=== PATIENT | female | born 1965 | race Caucasian/White ===

== ENCOUNTER 2017-10-11 10:38 | Emergency (ER) | payer MEDICAID, SELFPAY ==
[2017-10-11 10:19] VITALS: BP 126/79; PULSE 87; RESP 20; TEMP 36.7; O2SAT 99; BMI 73.1
--- NOTE | 2017-10-11 10:30 | XR_ITS ---
XR humerus RT CLINICAL INDICATION: ITS.REASON: Fall, right arm pain ORDERING PHYSICIAN: Shay Aden MD PATIENT AGE: 52 years COMPARISON: None FINDINGS: Study is somewhat limited technically due to patient's positioning. There is some deformity of the humeral head probably chronic. Please correlate as to patient's area of pain and tenderness. There is a subtle lucency involving the distal humerus laterally at the metaphyseal diaphyseal junction. This is of questionable clinical significance. Elbow films which are better centered over this area show no obvious fracture. IMPRESSION: No definite acute fracture. Deformity of the humeral head probably chronic.
--- NOTE | 2017-10-11 10:31 | XR_ITS ---
XR elbow RT 2V HISTORY: Pain following injury ITS.REASON: post fall ORDERING PHYSICIAN: Shay Aden MD PATIENT AGE: 52 years COMPARISON: None FINDINGS: No obvious fracture or dislocation. There are mild hypertrophic changes along the radial neck. IMPRESSION: Mild degenerative change, no obvious acute fracture
--- NOTE | 2017-10-11 11:33 | HMH.EDFALL ---
ED Disposition Clinical Impression: Multiple falls Disposition: Admitted As Inpatient Condition on Discharge: Good Instructions: How to Prevent Falls Time of Disposition: 14:14 - Critical Care Critical Care Time: No Attestation: On 10/11/17, the high probability of a clinically significant, sudden or life threatening deterioration of the following system(s) required my full and direct attention, intervention and personal management. The time I documented below is in addition to time spent performing reported procedures but includes the following listed in this critical care notation. Medical Decision Making - Medical Records Medical records reviewed: Yes: I reviewed the patient's medical records. Vital Signs: 10/11/17 10:19 10/11/17 16:25 Temperature 98.0 F 98.5 F Temperature Source Oral Oral Pulse Rate 87 Pulse Rate [Right Radial] 87 Respiratory Rate 20 14 Blood Pressure 130/75 Blood Pressure [Left Arm] 126/79 Blood Pressure Mean [Left Arm] 94 Blood Pressure Source Automatic Cuff Blood Pressure Source [Left Arm] Automatic Cuff Blood Pressure Position Sitting Blood Pressure Position [Left Arm] Sitting 02 Sat by Pulse Oximetry 99 Oxygen Delivery Method Room Air Room Air - Lab Data Lab Results 10/11/17 11:28: Urine Color Yellow, Urine Appearance Clear, Urine pH 6.0, Ur Specific [place] 1.015, Urine Protein Negative, Urine Glucose (UA) Negative, Urine Ketones Negative, Urine Blood Negative, Urine Nitrate Negative, Urine Bilirubin Negative, Urine Urobilinogen 0.2, Ur Leukocyte Esterase Negative, Urine RBC None, Urine WBC Occasional, Ur Squamous Epith Cells None, Urine Bacteria 3+ 10/11/17 12:07: WBC 10.4, RBC 3.91 L, Hgb 10.6 L, Hct 33.0 L, MCV 84.5, MCH 27.0, MCHC 32.0, RDW 14.1, Plt Count 178, MPV 7.5, Neut % (Auto) 71.9, Lymph % (Auto) 17.6, [place] % (Auto) 9.5 H, Eos % (Auto) 0.8, Baso % (Auto) 0.2, Neut # (Auto) 7.5, Lymph # (Auto) 1.8, [place] # (Auto) 1.0, Eos # (Auto) 0.1, Baso # (Auto) 0.0 10/11/17 12:07: Sodium 132 L, Potassium 4.0, Chloride 100, Carbon Dioxide 25, Anion Gap 11.0, BUN 28 H, Creatinine 1.58 H, Estimated Creat Clear 34, Estimated GFR 35 L, Est GFR ( Amer) 42 L, Glucose 100, Calcium 8.9, Total Bilirubin 0.9, AST 22, ALT 23, Alkaline Phosphatase 111, Total Protein 7.4, Albumin 3.0 L, Globulin 4.4 H, Albumin/Globulin Ratio 0.7 L 10/11/17 12:07: Total Creatine Kinase 320 H, CK-MB (CK-2) 0.7, CK-MB (CK-2) Rel Index 0.2, Troponin I < 0.02 Result diagrams: 10/11/17 12:07 10/11/17 12:07 - Radiology Data #1 Image(s): Elbow (right) Image Reviewed: Yes I reviewed the patient's radiology results Preliminary Findings: Normal/NAD #2 Image(s): Humerus (right) Image Reviewed: Yes I reviewed the patient's radiology results Preliminary Findings: Normal/NAD - ECG Data Tracing #1 I reviewed this ECG and interpreted as documented below: No acute disease, no ectopies, normal HI interval ECG normal with no acute: arrhythmias, ischemia, conduction abnormalities, chamber hypertrophy - Cain Inquiry Pt receiving controlled substance: No - Reevaluation(s) Time: 14:10 Reevaluation #1: Case discussed with Dr. Rod, covering for Dr. Pabon, advice of patient presentation findings, agreeable with admission. Medical care transferred Dr. Quinn at this time. I will write temporary admission orders per hospital protocol. Upon patient's presentation to the floor the nurse will contact PCP in order to obtain full inpatient admission orders. Fall HPI - General Chief Complaint: Fall Stated Complaint: frequent falls Time Seen by Provider: 10/11/17 10:50 Mode of Arrival: EMS Source of Information: Patient Limitations: Physical Limitations Description of Symptoms (Recalled from ER Triage Doc. by RN): [facility] [place], frequent falls for a few weeks. Fell this AM by her bed, C/O right arm pain post fall. Also states her feet are numb since she fell. - History of P
[2017-10-11 11:39] LABS: Microscopic, Urine URINE MICROSCOPIC (MICROSCOPIC)
[2017-10-11 11:42] LABS: Appearance,Urine CLEAR (Clear); Bilirubin,Urine Negative (Negative); Blood, Urine Negative (Negative); Color,Urine YELLOW (Yellow); Glucose,Urine (UA) Negative (Negative); Ketones,Urine Negative (Negative); Leukocyte Esterase,Urine Negative (Negative); Nitrate,Urine Negative (Negative); Protein,Urine Negative (Negative); Specific Gravity, Urine 1.015 (1.005-1.030); Urobilinogen,Urine 0.2 EU/dl (0.2)
[2017-10-11 11:58] LABS: WBC,Urine Occasional #/hpf (0-3)
[2017-10-11 11:59] LABS: Bacteria,Urine 3+ /lpf
[2017-10-11 12:31] LABS: Alanine Aminotransferase 23 U/L (12-78); Albumin/Globulin Ratio 0.7 (1.1-1.8); Alkaline Phosphatase 111 U/L (46-116); Aspartate Amino Transferase 22 U/L (15-37); Bilirubin,Total 0.9 mg/dL (0.2-1.0); Blood Urea Nitrogen 28 mg/dL (7-18); Calcium 8.9 mg/dL (8.5-10.1); Carbon Dioxide 25 mmol/L (21.0-32.0); Chloride 100 mmol/L (98-107); Creatinine Clearance Estimated 34 mL/min (0-300); Creatinine,Serum 1.58 mg/dL (0.55-1.02); Estimated Glomerular Filt Rate 35 ml/min (>60); GFR (African American) 42 ML/MIN (>60); Globulin 4.4 gm/dl (1.3-3.2); Glucose 100 mg/dL (74-106); Sodium 132 mmol/L (136-145); Total Protein,Serum 7.4 gm/dL (6.4-8.2)
[2017-10-11 12:36] LABS: Basophils % 0.2 % (0.1-2.0); Eosinophils # 0.1 K/mm3 (0.0-0.4); Eosinophils % 0.8 % (0.1-12.0); Hemoglobin 10.6 g/dL (12.2-16.2); Lymphocytes # 1.8 K/mm3 (0.7-4.5); Lymphocytes % 17.6 K/mm3 (10-50); Mean Corpuscular Volume 84.5 fl (81-99); Mean Platelet Volume 7.5 fl (7.4-10.4); Monocytes % 9.5 % (1.7-9.3); Neutrophils # 7.5 K/mm3 (1.8-7.8); Neutrophils % 71.9 % (37.0-80.0); Platelet Count 178 K/mm3 (142-424); Red Blood Count 3.91 M/mm3 (4.20-5.40); Red Cell Distribution Width 14.1 % (11.5-17.5); White Blood Count 10.4 K/mm3 (4.8-10.8)
[2017-10-11 12:52] LABS: CKMB Relative Index 0.2 U/L (0-4.0); Creatine Kinase 320 U/L (26-192); Creatine Kinase MB 0.7 mg/ml (0.0-3.6); Troponin I < 0.02 ng/ml (0.00-0.06)
--- NOTE | 2017-10-11 15:48 | PC.NURSE ---
Cardiac Enzymes cancelled per Dr. Aden's verbal order.
[2017-10-11 16:25] VITALS: BP 130/75; PULSE 87; RESP 14; TEMP 36.9; O2SAT 98
== END 2017-10-11 16:26 | disposition admitted as inpatient to this hospital (09) ==
PROVIDERS: Emergency Provider Emergency Medicine; Family Provider Emergency Medicine
DX: R29.6 Repeated falls (principal); M79.601 Pain in right arm; R20.2 Paresthesia of skin; Z79.82 Long term (current) use of aspirin; Z79.899 Other long term (current) drug therapy
CPT/HCPCS: 73060; 73070; 80053; 81001; 82550; 82553; 84484; 85025; 87086; 93005; 93041; 99284

== ENCOUNTER → 2017-11-02 10:02 | Outpatient (CLI) | payer MEDICAID, SELFPAY ==
--- NOTE | 2017-11-02 10:07 | US_ITS ---
US breast RT complete COMPARISON: None INDICATION: Painful right tender breast warmth to touch with edema ORDERING PHYSICIAN: Lico Pabon MD PATIENT AGE: 52 years TECHNIQUE: Complete ultrasound the right breast including axilla. Study is somewhat limited secondary to patient inability to be properly positioned FINDINGS: There is a 10 x 8 cm hypoechoic mass present in the upper outer aspect of the right breast towards the axilla. This is hypoechoic with some through transmission of sound. There are low level echoes within this region. The margins are somewhat irregular with some lobulation/spiculation of the margins. This may represent a breast abscess with internal debris. Cannot exclude the possibility of a soft tissue mass/neoplasm. This does not have a typical appearance for inflammatory breast carcinoma. No significant hypervascularity of the lesion. The patient could not tolerate vomiting the mammogram. IMPRESSION: 10 x 8 cm complex right breast mass which may represent an abscess. Neoplasm is also considered. BI-RADS Category: 4 Suspicious Abnormality-Biopsy Considered RECOMMENDED FOLLOW-UP: IMM - IMMEDIATE FOLLOW-UP RECOMMENDED Recommend surgical consult. Ultrasound-guided biopsy/drainage could be performed if clinically desired. (A letter has been sent to the patient regarding results of the study.)
== END ==
PROVIDERS: Family Provider Emergency Medicine; PCP Emergency Medicine; Visit Provider Emergency Medicine
DX: N64.4 Mastodynia (principal); R60.0 Localized edema
CPT/HCPCS: 76641

== ENCOUNTER 2017-11-02 18:23 | Inpatient (IN) | payer MEDICAID, SELFPAY ==
[2017-11-02 18:28] VITALS: BP 94/91; PULSE 87; RESP 16; TEMP 36.8; O2SAT 98; BMI 82.3
--- NOTE | 2017-11-02 18:48 | HMH.EDGENADL ---
ED Disposition Condition on Discharge: Serious - Critical Care Critical Care Time: Yes Total Critical Care Time: 40 Vital system(s) involved:: Metabolic Failure, Renal Failure My critical care processes included: Assessment & monitoring of V/S, Initial and Re-exams, Data Review/Interpretation, Coordinating Care, Medication Orders and management, Documentation <Julio Cesar Covarrubias - Last Filed: 11/02/17 20:13> <Lico Pabon - Last Filed: 11/02/17 20:46> Clinical Impression: Hyperkalemia, Abscess of right breast Acute renal failure Qualifiers: Acute renal failure type: unspecified Qualified Code(s): N17.9 - Acute kidney failure, unspecified Disposition: Still a Patient Referrals: Lico Pabon MD [Primary Care Provider] - Attestation: On 11/02/17, the high probability of a clinically significant, sudden or life threatening deterioration of the following system(s) required my full and direct attention, intervention and personal management. The time I documented below is in addition to time spent performing reported procedures but includes the following listed in this critical care notation. Medical Decision Making - Lab Data Result diagrams: 11/02/17 18:30 11/02/17 18:30 - Cain Inquiry Pt receiving controlled substance: No <Julio Cesar Covarrubias - Last Filed: 11/02/17 20:13> - Lab Data Result diagrams: 11/02/17 18:30 11/02/17 18:30 <Lico Pabon - Last Filed: 11/02/17 20:46> Vital Signs: 11/02/17 18:28 11/02/17 20:16 Temperature 98.2 F Temperature Source Oral Pulse Rate 88 Pulse Rate [Left Radial] 87 Respiratory Rate 16 Blood Pressure [Left Arm] 94/91 Blood Pressure Mean [Left Arm] 92 Blood Pressure Source [Left Arm] Automatic Cuff Blood Pressure Position [Left Arm] Supine 02 Sat by Pulse Oximetry 98 Oxygen Delivery Method Room Air - Lab Data Lab Results 11/02/17 18:30: WBC 16.1 H, RBC 3.68 L, Hgb 9.6 L, Hct 32.0 L, MCV 86.9, MCH 26.1 L, MCHC 30.1 L, RDW 14.7, Plt Count 563 H, MPV 7.2 L, Neut % (Auto) 85.2 H, Lymph % (Auto) 8.7 L, [place] % (Auto) 5.4, Eos % (Auto) 0.6, Baso % (Auto) 0.3, Neut # (Auto) 13.7 H, Lymph # (Auto) 1.4, [place] # (Auto) 0.9, Eos # (Auto) 0.1, Baso # (Auto) 0.0, Total Counted 100, Neutrophils % (Manual) 80 H, Band Neutrophils % 2.0, Lymphocytes % (Manual) 13, Monocytes % (Manual) 5, Hypersegmented Neuts 2+, Platelet Estimate Moderate increase, Macrocytosis 1+, Rouleaux 2+ 11/02/17 18:30: Sodium 134 L, Potassium 6.9 H*, Chloride 101, Carbon Dioxide 21, Anion Gap 18.9 H, BUN 65 H, Creatinine 3.28 H, Estimated Creat Clear 16, Estimated GFR 15 L*, Est GFR ( Amer) 18 L*, Glucose 79, Calcium 8.7, Total Bilirubin 0.4, AST 154 H, ALT 54, Alkaline Phosphatase 90, Total Protein 7.3, Albumin 1.8 L, Globulin 5.5 H, Albumin/Globulin Ratio 0.3 L Orders (Tests/Meds): ED MEDICATIONS Generic Name Dose Route Start Last Admin Trade Name Freq PRN Reason Stop Dose Admin Vancomycin HCl 3,000 mg 11/02/17 20:44 Vancomycin 1000mg Vial IV 11/02/17 20:45 [facility] Protocol Discontinued Medications Generic Name Dose Route Start Last Admin Trade Name Freq PRN Reason Stop Dose Admin Albuterol Sulfate 2.5 mg 11/02/17 19:37 11/02/17 20:11 Albuterol 0.083% 2.5mg/3ml Neb IH 11/02/17 19:38 2.5 mg ONCE ONE Administration Dextrose 50 ml 11/02/17 19:35 11/02/17 19:49 Dextrose 50% 50ml Syringe IVP 11/02/17 19:36 50 ml ONCE ONE Administration Insulin Human Regular 10 unit 11/02/17 19:35 11/02/17 19:49 Humulin R Insulin 100 Units/Ml 10ml Vial IVP 11/02/17 19:36 10 unit ONCE ONE Administration Sodium Bicarbonate 50 meq 11/02/17 19:33 11/02/17 19:49 Sodium Bicarbonate 8.4% 50ml Syringe IV 11/02/17 19:34 50 meq ONCE ONE Administration Sodium Polystyrene Sulfonate 15 gm 11/02/17 19:37 11/02/17 19:50 Kayexalate 15gm/60ml Bottle PO 11/02/17 19:38 15 gm ONCE ONE Administration ORD
[2017-11-02 19:13] LABS: Basophils % 0.3 % (0.1-2.0); Eosinophils # 0.1 K/mm3 (0.0-0.4); Eosinophils % 0.6 % (0.1-12.0); Hemoglobin 9.6 g/dL (12.2-16.2); Lymphocytes # 1.4 K/mm3 (0.7-4.5); Lymphocytes % 8.7 K/mm3 (10-50); Mean Corpuscular HGB Conc 30.1 g/dL (31.8-35.4); Mean Corpuscular Hemoglobin 26.1 pg (27.0-31.2); Mean Corpuscular Volume 86.9 fl (81-99); Mean Platelet Volume 7.2 fl (7.4-10.4); Monocytes # 0.9 K/mm3 (0.1-1.0); Monocytes % 5.4 % (1.7-9.3); Neutrophils # 13.7 K/mm3 (1.8-7.8); Neutrophils % 85.2 % (37.0-80.0); Platelet Count 563 K/mm3 (142-424); Red Blood Count 3.68 M/mm3 (4.20-5.40); Red Cell Distribution Width 14.7 % (11.5-17.5); White Blood Count 16.1 K/mm3 (4.8-10.8)
[2017-11-02 19:15] LABS: MANUAL DIFFERENTIAL MANUAL DIFFERENTIAL (MANUAL DIFF)
[2017-11-02 19:21] LABS: Alanine Aminotransferase 54 U/L (12-78); Albumin Level 1.8 gm/dL (3.4-5.0); Albumin/Globulin Ratio 0.3 (1.1-1.8); Alkaline Phosphatase 90 U/L (46-116); Aspartate Amino Transferase 154 U/L (15-37); Bilirubin,Total 0.4 mg/dL (0.2-1.0); Blood Urea Nitrogen 65 mg/dL (7-18); Calcium 8.7 mg/dL (8.5-10.1); Carbon Dioxide 21 mmol/L (21.0-32.0); Chloride 101 mmol/L (98-107); Creatinine Clearance Estimated 16 mL/min (0-300); Creatinine,Serum 3.28 mg/dL (0.55-1.02); Globulin 5.5 gm/dl (1.3-3.2); Glucose 79 mg/dL (74-106); Lymphocytes % 13 % (10-50); Monocytes % 5 % (2-9); Neutrophils % 80 % (42-76); Platelet Estimate Moderate Increase; Sodium 134 mmol/L (136-145); Total Cells Counted 100; Total Protein,Serum 7.3 gm/dL (6.4-8.2)
[2017-11-02 19:22] LABS: Hypersegmented Neutrophils 2+; Macrocytosis 1+; Rouleaux 2+
--- NOTE | 2017-11-02 19:22 | PC.NURSE ---
PT HAS 2-3 BREAKDOWN ON BOTH BUTTOCKS AND LOWER BACK ABOVE COCCYX. MD NOTIFIED AND STAFF NOTIFIED DURING HAND OFF REPORT.
--- NOTE | 2017-11-02 19:25 | PC.NURSE ---
PT ALSO HAS AN INFLAMED AREA ON THE RIGHT BREAST. MD AWARE AND STAFF AWARE
[2017-11-02 19:34] LABS: Estimated Glomerular Filt Rate 15 ml/min (>60); GFR (African American) 18 ML/MIN (>60)
[2017-11-02 19:35] LABS: Anion Gap 18.9 mEq/L (5-15); Potassium 6.9 mmoL/L (3.5-5.1)
[2017-11-02 20:16] VITALS: PULSE 88; PULSE 90
--- NOTE | 2017-11-02 20:37 | PC.NURSE ---
DR Pabon attempting to get acceptance at higher level of care, is on the line , also calliong pharmacy for vanco dose
[2017-11-02 21:08] VITALS: BMI 69.5
[2017-11-02 22:26] VITALS: BP 89/48; PULSE 83; RESP 25; TEMP 37.1; O2SAT 95
[2017-11-02 23:00] VITALS: O2SAT 97
[2017-11-02 23:22] VITALS: O2SAT 92
[2017-11-03] VITALS (10 sets, daily range): BP systolic 92–113; BP diastolic 45–58; PULSE 70–90; RESP 20–24; TEMP 36.4–37.8; O2SAT 93–98
[2017-11-03 01:52] LABS: Anion Gap 20.2 mEq/L (5-15); Blood Urea Nitrogen 65 mg/dL (7-18); Carbon Dioxide 18 mmol/L (21.0-32.0); Chloride 106 mmol/L (98-107); Creatinine Clearance Estimated 16 mL/min (0-300); Creatinine,Serum 3.11 mg/dL (0.55-1.02); Estimated Glomerular Filt Rate 16 ml/min (>60); Glucose 94 mg/dL (74-106); Sodium 138 mmol/L (136-145)
--- NOTE | 2017-11-03 01:53 | PC.NURSE ---
scattered bruises and scratches noted to all extremities, deep tissue area noted to bilateral buttocks, small open areas present, area was cleaned with betadine and covered with ABD pads, reddened swollen area noted to right breast.
[2017-11-03 01:55] LABS: Potassium 6.2 mmoL/L (3.5-5.1)
[2017-11-03 01:56] LABS: GFR (African American) 19 ML/MIN (>60)
--- NOTE | 2017-11-03 02:00 | PC.NURSE ---
lab notified RN of critical potassium result of 6.2, MD notified and kayexalate 15gm/60 ml ordered and given, pt has yet to have a bowel movement, while administering kayexalate pt became combative and agressive toward staff using foul language, pt deescalated, safety measures in place, will continue to monitor.
[2017-11-03 06:20] LABS: Basophils % 0.3 % (0.1-2.0); Eosinophils # 0.1 K/mm3 (0.0-0.4); Eosinophils % 0.4 % (0.1-12.0); Hematocrit 29.3 % (37.0-47.0); Hemoglobin 9.2 g/dL (12.2-16.2); Lymphocytes # 1.4 K/mm3 (0.7-4.5); Lymphocytes % 11.6 K/mm3 (10-50); Mean Corpuscular HGB Conc 31.4 g/dL (31.8-35.4); Monocytes # 0.8 K/mm3 (0.1-1.0); Monocytes % 6.3 % (1.7-9.3); Neutrophils % 81.4 % (37.0-80.0); Platelet Count 447 K/mm3 (142-424); Red Blood Count 3.41 M/mm3 (4.20-5.40); Red Cell Distribution Width 14.8 % (11.5-17.5); White Blood Count 12.3 K/mm3 (4.8-10.8)
[2017-11-03 06:29] LABS: Anion Gap 16.4 mEq/L (5-15); Blood Urea Nitrogen 63 mg/dL (7-18); Carbon Dioxide 21 mmol/L (21.0-32.0); Chloride 105 mmol/L (98-107); Creatinine Clearance Estimated 17 mL/min (0-300); Creatinine,Serum 2.92 mg/dL (0.55-1.02); Estimated Glomerular Filt Rate 17 ml/min (>60); GFR (African American) 21 ML/MIN (>60); Glucose 87 mg/dL (74-106); Potassium 5.4 mmoL/L (3.5-5.1); Sodium 137 mmol/L (136-145)
--- NOTE | 2017-11-03 08:09 | HMH.GSCON ---
*Admission Date: 11/02/17 *Chief complaint: abscess *History of present illness: This is a 52yo female seen in consultation from Dr. Pabon for evaluation of right chest abscess. She has a complex medical history including recent treatment for acute kidney injury. She is a poor historian, but has seemingly been developing a somewhat tender swelling of the right upper chest. US shows ~10cm likely abscess Review of Systems - Constitutional Denies anorexia - *Cardiovascular Denies chest pain - *Respiratory Denies cough - *Gastrointestinal Denies abdominal pain [facility] History Medical History: Reports:: Coronary Artery Disease, Hyperlipidemia Denies:: Internal Pacemaker Other Medical History: Reports: Anemia Other Surgeries: No: Pacemaker - *Social History Educational Level: Completed Grade School Smoking Status: Never smoker Alcohol Intake: never Occupational Status: disabled Housing: care home - Psychiatric History Expresses thoughts of harming self/others: None Suicide Plan Description: No Plan *Family Hx:: Unable to obtain Meds Home Medications Medication Instructions Recorded Confirmed Type Acetaminophen 650 mg PO Q4HP PRN 10/11/17 11/03/17 History Furosemide [Furosemide 40MG tAB] 40 mg PO BID 10/11/17 11/03/17 History Gabapentin [Gabapentin 800mg Tab] 800 mg PO TID 10/11/17 11/03/17 History Tramadol HCl [Ultram Take Home 50 mg PO BID 10/11/17 11/03/17 History Pack 50mg (10)] Trazodone HCl 150 mg PO HS 10/11/17 11/03/17 History LORazepam [Ativan] 0.5 mg PO BID 11/02/17 11/02/17 History Mag Hydrox/Aluminum Hyd/Simeth 30 ml PO Q2HP PRN 11/02/17 11/02/17 History [Gemma-Lanta Liquid] Melatonin/Pyridoxine HCl (B6) 1 each PO HS 11/02/17 11/02/17 History [Melatonin 5 mg Tablet] Ondansetron [Zofran 4mg ODT] 4 mg PO Q8HP PRN 11/02/17 11/02/17 History Sodium Polystyrene Sulfon/Sorb 60 ml PO DAILY 11/02/17 11/02/17 History [Kayexalate 15gm/60mL bottle] cephALEXin [Keflex 500mg Cap] 1,000 mg PO BID 11/02/17 11/02/17 History Pantoprazole Sodium [Protonix 40mg 40 mg PO DAILY 11/03/17 11/03/17 History tablet] buPROPion HCl [Wellbutrin Xl] 300 mg PO DAILY 11/03/17 11/03/17 History Allergies Allergy/AdvReac Type Severity Reaction Status Date / Time No Known Allergies Allergy Unverified 09/11/17 14:14 Exam Vital signs and Labs for Last 24 Hours: Temp Pulse Resp BP Pulse Ox 97.9 F 86 22 113/58 98 11/03/17 07:56 11/03/17 07:56 11/03/17 07:56 11/03/17 07:56 11/03/17 07:56 Laboratory Results - last 24 hr 11/03/17 01:10: Sodium 138, Potassium 6.2 H*, Chloride 106, Carbon Dioxide 18 L, Anion Gap 20.2 H, BUN 65 H, Creatinine 3.11 H, Estimated Creat Clear 16, Estimated GFR 16 L*, Est GFR ( Amer) 19 L*, Glucose 94 11/03/17 05:45: WBC 12.3 H, RBC 3.41 L, Hgb 9.2 L, Hct 29.3 L, MCV 86.0, MCH 27.0, MCHC 31.4 L, RDW 14.8, Plt Count 447 H, MPV 7.0 L, Neut % (Auto) 81.4 H, Lymph % (Auto) 11.6, [place] % (Auto) 6.3, Eos % (Auto) 0.4, Baso % (Auto) 0.3, Neut # (Auto) 10.0 H, Lymph # (Auto) 1.4, [place] # (Auto) 0.8, Eos # (Auto) 0.1, Baso # (Auto) 0.0 11/03/17 05:45: Sodium 137, Potassium 5.4 H, Chloride 105, Carbon Dioxide 21, Anion Gap 16.4 H, BUN 63 H, Creatinine 2.92 H, Estimated Creat Clear 17, Estimated GFR 17 L*, Est GFR ( Amer) 21 L, Glucose 87 I & O for Last 24 hours: Intake & Output 10/31/17 11/01/17 11/02/17 11/03/17 11:59 11:59 11:59 11:59 Output Total 1100 / 1100 Balance -1099 / -1099 Weight 379 lb 3.121 oz - Constitutional no acute distress - *Routine Respiratory Exam Absent: respiratory distress - *Routine Cardiovascular Exam Present: RRR - *Routine Skin Exam Comments: right upper chest/breast abscess with mild cellulitis Results - Labs 11/03/17 05:45 11/03/17 05:45 Laboratory Results - last 24 hr 11/03/17 01:10: Sodium 138, Potassium 6.2 H*, Chloride 106, Carbon Dioxide 18 L, Anion Gap 20.2 H, BU
--- NOTE | 2017-11-03 08:16 | P.CONS_ITS ---
*Admission Date: 11/02/17 *Chief complaint: abscess *History of present illness: This is a 52yo female seen in consultation from Dr. Pabon for evaluation of right chest abscess. She has a complex medical history including recent treatment for acute kidney injury. She is a poor historian, but has seemingly been developing a somewhat tender swelling of the right upper chest. US shows ~10cm likely abscess Review of Systems - Constitutional Denies anorexia - *Cardiovascular Denies chest pain - *Respiratory Denies cough - *Gastrointestinal Denies abdominal pain [facility] History Medical History: Reports:: Coronary Artery Disease, Hyperlipidemia Denies:: Internal Pacemaker Other Medical History: Reports: Anemia Other Surgeries: No: Pacemaker - *Social History Educational Level: Completed Grade School Smoking Status: Never smoker Alcohol Intake: never Occupational Status: disabled Housing: [facility] - Psychiatric History Expresses thoughts of harming self/others: None Suicide Plan Description: No Plan *Family Hx:: Unable to obtain Meds Home Medications Medication Instructions Recorded Confirmed Type Acetaminophen 650 mg PO Q4HP PRN 10/11/17 11/03/17 History Furosemide [Furosemide 40MG tAB] 40 mg PO BID 10/11/17 11/03/17 History Gabapentin [Gabapentin 800mg Tab] 800 mg PO TID 10/11/17 11/03/17 History Tramadol HCl [Ultram Take Home 50 mg PO BID 10/11/17 11/03/17 History Pack 50mg (10)] Trazodone HCl 150 mg PO HS 10/11/17 11/03/17 History LORazepam [Ativan] 0.5 mg PO BID 11/02/17 11/02/17 History Mag Hydrox/Aluminum Hyd/Simeth 30 ml PO Q2HP PRN 11/02/17 11/02/17 History [Gemma-Lanta Liquid] Melatonin/Pyridoxine HCl (B6) 1 each PO HS 11/02/17 11/02/17 History [Melatonin 5 mg Tablet] Ondansetron [Zofran 4mg ODT] 4 mg PO Q8HP PRN 11/02/17 11/02/17 History Sodium Polystyrene Sulfon/Sorb 60 ml PO DAILY 11/02/17 11/02/17 History [Kayexalate 15gm/60mL bottle] cephALEXin [Keflex 500mg Cap] 1,000 mg PO BID 11/02/17 11/02/17 History Pantoprazole Sodium [Protonix 40mg 40 mg PO DAILY 11/03/17 11/03/17 History tablet] buPROPion HCl [Wellbutrin Xl] 300 mg PO DAILY 11/03/17 11/03/17 History Allergies Allergy/AdvReac Type Severity Reaction Status Date / Time No Known Allergies Allergy Unverified 09/11/17 14:14 Exam Vital signs and Labs for Last 24 Hours: Temp Pulse Resp BP Pulse Ox 97.9 F 86 22 113/58 98 11/03/17 07:56 11/03/17 07:56 11/03/17 07:56 11/03/17 07:56 11/03/17 07:56 Laboratory Results - last 24 hr 11/03/17 01:10: Sodium 138, Potassium 6.2 H*, Chloride 106, Carbon Dioxide 18 L , Anion Gap 20.2 H, BUN 65 H, Creatinine 3.11 H, Estimated Creat Clear 16, Estimated GFR 16 L*, Est GFR ( Amer) 19 L*, Glucose 94 11/03/17 05:45: WBC 12.3 H, RBC 3.41 L, Hgb 9.2 L, Hct 29.3 L, MCV 86.0, MCH 27.0, MCHC 31.4 L, RDW 14.8, Plt Count 447 H, MPV 7.0 L, Neut % (Auto) 81.4 H, Lymph % (Auto) 11.6, [place] % (Auto) 6.3, Eos % (Auto) 0.4, Baso % (Auto) 0.3, Neut # (Auto) 10.0 H, Lymph # (Auto) 1.4, [place] # (Auto) 0.8, Eos # (Auto) 0.1, Baso # (Auto) 0.0 11/03/17 05:45: Sodium 137, Potassium 5.4 H, Chloride 105, Carbon Dioxide 21, Anion Gap 16.4 H, BUN 63 H, Creatinine 2.92 H, Estimated Creat Clear 17, Estimated GFR 17 L*, Est GFR ( Amer) 21 L, Glucose 87 I & O for Last 24 hours: Intake & Output
--- NOTE | 2017-11-03 09:24 | HMH.OPNOTE ---
Date of procedure: 11/03/17 Pre-op Diagnosis:: Right chest abscess Post-op diagnosis:: same Procedure performed:: Incision and drainage of right chest abscess (bedside) Surgeon:: Kenny Herron MD Anesthesia: local Estimated blood loss (mL): 1 Operative findings:: Large volume (at least 500ml) of purulent fluid easily drained Operative note:: The patient's right upper chest was prepped and draped in a sterile fashion. After infiltration with 1% lidocaine and elliptical incision overlying the central portion of the abscess was excised. Sharp dissection with scalpel through the subcutaneous tissue into an abscess cavity was accomplished. Fluid was obtained for Gram stain and culture. A very large volume purulent fluid was expressed. The exact quantity could not be determined; however, at least 500 mL was removed. The wound was packed with moistened Kerlix and dressings were applied. The patient tolerated the procedure. Condition: stable Disposition: no change Specimens:: Fluid for Gram stain and culture Complications:: No immediate
--- NOTE | 2017-11-03 09:26 | HMH.HPDC ---
General - General Admission date: 11/02/17 Discharge date: 11/03/17 *Admission Date: 11/02/17 *History of present illness: This is a 52yo female seen in consultation from Dr. Pabon for evaluation of right chest abscess. She has a complex medical history including recent treatment for acute kidney injury. She is a poor historian, but has seemingly been developing a somewhat tender swelling of the right upper chest. US shows ~10cm likely abscesse patient seems to be confused and is not felt to be an accurate historian. Per shelter records, she has had abnormal labs. Potassium was elevated yesterday. Today had increased to 7.3. BUN and creatinine were elevated, creatinine of 2.5. Records indicate that Kayexalate was ordered for today and tomorrow, IV saline was ordered, potassium was held. Apparently, IV could not be established and the patient is sent to the emergency room for further evaluation and treatment. She currently denies any complaint. Review of records shows that she had an ultrasound of her right breast performed here today which showed an 8 cm x 10 cm complex mass Right breast, possible abscess. She was seen here in the emergency room on 10/11/17 for a fall. At that time had been transferred from [facility]. She was admitted and apparently discharged to [facility], where she now resides. Appears to have been on Keflex for several days for her breast infection [facility] History I have reviewed the patient's past medical history: Yes Medical History: Reports:: Coronary Artery Disease, Hyperlipidemia Denies:: Internal Pacemaker Other Medical History: Reports: Anemia Other Surgeries: No: Pacemaker - *Social History Educational Level: Completed Grade School Smoking Status: Never smoker Alcohol Intake: never Occupational Status: disabled Housing: shelter - Psychiatric History Expresses thoughts of harming self/others: None Suicide Plan Description: No Plan *Family Hx:: Unable to obtain Review of Systems - Review of Systems Review of systems:: unable to obtain ros from [facility] records - Constitutional Denies fever(s) - *Cardiovascular Denies chest pain - *Respiratory Denies chest congestion - Integumentary/Breasts Denies rash - *Neurologic Denies seizure-like activity Exam Vital signs and Labs for Last 24 Hours: Temp Pulse Resp BP Pulse Ox 97.9 F 86 22 113/58 98 11/03/17 07:56 11/03/17 07:56 11/03/17 07:56 11/03/17 07:56 11/03/17 07:56 Laboratory Results - last 24 hr 11/03/17 01:10: Sodium 138, Potassium 6.2 H*, Chloride 106, Carbon Dioxide 18 L, Anion Gap 20.2 H, BUN 65 H, Creatinine 3.11 H, Estimated Creat Clear 16, Estimated GFR 16 L*, Est GFR ( Amer) 19 L*, Glucose 94 11/03/17 05:45: WBC 12.3 H, RBC 3.41 L, Hgb 9.2 L, Hct 29.3 L, MCV 86.0, MCH 27.0, MCHC 31.4 L, RDW 14.8, Plt Count 447 H, MPV 7.0 L, Neut % (Auto) 81.4 H, Lymph % (Auto) 11.6, [place] % (Auto) 6.3, Eos % (Auto) 0.4, Baso % (Auto) 0.3, Neut # (Auto) 10.0 H, Lymph # (Auto) 1.4, [place] # (Auto) 0.8, Eos # (Auto) 0.1, Baso # (Auto) 0.0 11/03/17 05:45: Sodium 137, Potassium 5.4 H, Chloride 105, Carbon Dioxide 21, Anion Gap 16.4 H, BUN 63 H, Creatinine 2.92 H, Estimated Creat Clear 17, Estimated GFR 17 L*, Est GFR ( Amer) 21 L, Glucose 87 I & O for Last 24 hours: Intake & Output 10/31/17 11/01/17 11/02/17 11/03/17 11:59 11:59 11:59 11:59 Output Total 1100 / 1100 Balance -1100 / -1100 Weight 379 lb 3.121 oz - Constitutional no acute distress - *Routine HEENT Exam Head: Present: normocephalic Eye: Present: EOMI, PERRL ENT: Absent: mucous membranes dry - *Routine Neck Exam Present: supple - *Routine Respiratory Exam Absent: respiratory distress - *Routine Cardiovascular Exam Present: RRR - *Routine Abdominal Exam Present: soft - *Routine Extremities Exam Absent: edema - *Routine Skin Exam Comments: tender rt abscess - *Routine N
--- NOTE | 2017-11-03 10:46 | PC.NURSE ---
WE WERE UNABLE TO OBTAIN CONSENT FROM PATIENT FOR RIGHT BREAST INCISION AND DRAINAGE. SHE IS DROWSY AND ORIENTED TO SELF ONLY SHE IS ALSO UNABLE TO EVEN HOLD A PEN AT THIS TIME TO SIGN. I CALLED TRINIDAD AT [facility] WHO STATES THAT PATIENT NORMALLY CONSENTS FOR HERSELF AND DOES NOT HAVE A POA. THIS WAS REPORTED TO DR EDUARDO WHO STATED THIS WOULD NEED TO BE PERFORMED EMERGENTLY. THIS WAS NOTED ON THE CONSENT FORM AND SIGNED BY MYSELF AND CO-SIGNED BY [facility] MARJORIE MUNOZ RN. TIME OUT WAS PERFORMED PRIOR TO PROCEDURE AND DR EDUARDO PERFORMED I&D AT BEDSIDE. COPIOUS AMOUNTS OF BLOODY PURULENT DRAINAGE WERE NOTED. SITE WAS PACKED WITH 1 LARGE KERLIX AND A SECOND KERLIX WAS ATTACHED BY A KNOT AND PARTIALLY PLACED IN OPENING. 4X4S WERE PLACED OVER AREA AND COVERED WITH MEDIPORE TAPE. PATIENT TOLERATED VERY WELL SLEEPING THROUGH MAJORITY OF THE PROCEDURE.
[2017-11-03 14:17] LABS: Anion Gap 13.7 mEq/L (5-15); Blood Urea Nitrogen 57 mg/dL (7-18); Carbon Dioxide 24 mmol/L (21.0-32.0); Chloride 106 mmol/L (98-107); Creatinine Clearance Estimated 22 mL/min (0-300); Creatinine,Serum 2.28 mg/dL (0.55-1.02); Estimated Glomerular Filt Rate 23 ml/min (>60); GFR (African American) 27 ML/MIN (>60); Glucose 102 mg/dL (74-106); Potassium 4.7 mmoL/L (3.5-5.1); Sodium 139 mmol/L (136-145)
--- NOTE | 2017-11-03 14:51 | HMH.PHAVTE ---
[facility] Pharmacy VTE Monitoring - Patient Demographics Admission date: 11/02/17 Report Date: 11/03/17 Time: 14:51 Allergies/Adverse Reactions: Patient Allergies No Known Allergies Allergy (Unverified 09/11/17 14:14) Height: 1.57 m Weight: 172 kg Patient Problems: Current Active Problems Hyperkalemia (Acute) Acute renal failure (Acute) Abscess of right breast (Acute) - VTE Risk Labs: VTE Related Lab Results Hgb 9.2 g/dL (12.2-16.2) L 11/03/17 05:45 Hct 29.3 % (37.0-47.0) L 11/03/17 05:45 Plt Count 447 K/mm3 (142-424) H 11/03/17 05:45 BUN 57 mg/dL (7-18) H 11/03/17 14:00 Creatinine 2.28 mg/dL (0.55-1.02) H D 11/03/17 14:00 Estimated Creat Clear 22 mL/min (0-300) 11/03/17 14:00 Was VTE Risk Assessment Performed: Yes VTE Score: 4 VTE Risk Level: Low Risk - Prophylaxis VTE Prophylaxis Ordered?: Yes Types of VTE Prophylaxis: TEDS Knee High Location of Applied Device: Bilateral Lower Extremeties
--- NOTE | 2017-11-03 15:31 | PC.NURSE ---
CALLED [facility] TO CHECK ON BED AVAILABILITY. SPOKE TO MARIA DOLORES WHO STATES THERE ARE STILL NO TELE BEDS AVAILABLE AT THIS TIME.
--- NOTE | 2017-11-04 03:15 | PC.NURSE ---
EMS HERE TO TRANSFER PT TO [facility] AT 3AM. PT ALERT/ORIENTED TO PERSON.
[2017-11-04 03:16] VITALS: O2SAT 91
== END 2017-11-04 03:00 | disposition short-term general hospital (02) | DRG 580 ==
LOC: ER 19:42 → 2ND 11-03 00:58
PROVIDERS: Admitting Provider Emergency Medicine; Emergency Provider Emergency Medicine; Family Provider Emergency Medicine; PCP Emergency Medicine; Visit Provider Emergency Medicine
DX: N61.1 Abscess of the breast and nipple (principal); N17.9 Acute kidney failure, unspecified; E87.5 Hyperkalemia; I25.10 Atherosclerotic heart disease of native coronary artery without angina pectoris; E78.5 Hyperlipidemia, unspecified; Z79.891 Long term (current) use of opiate analgesic; Z79.899 Other long term (current) drug therapy
CPT/HCPCS: 36415; 76641; 80048; 80053; 85007; 85025; 87070; 87077; 87186; 87205; 93005; 93041; 94761; 96365; 96366; 99284